=== PATIENT | female | born 1955 | race Caucasian/White ===

== ENCOUNTER → 2023-12-03 10:17 | Outpatient (REF) | payer MEDICARE, OTHER, SELFPAY | LOC: DHCBS HW 10:17 | PROVIDERS: ATTENDING PHYSICIAN Internal Medicine Cardiovascular Disease; FAMILY PHYSICIAN Internal Medicine | DX: R00.2 Palpitations (principal); I10 Essential (primary) hypertension | CPT/HCPCS: 93306 ==

== ENCOUNTER → 2023-12-18 14:16 | Outpatient (REF) | payer MEDICARE, OTHER, SELFPAY ==
[2023-12-18 15:43] LABS: % Basophils 0.7 % (0-2); % Immature Granulocytes 0.4 % (0-0.5); % Lymphocytes 18.2 % (20.5-51.1); % Monocytes 9.4 % (1.7-9.3); % Neutrophils 70.3 % (42.2-75.2); Absolute Basophils 0.1 10^3/uL (0-0.2); Absolute Eosinophils 0.1 10^3/uL (0-0.7); Absolute Lymphocytes 1.3 10^3/uL (1.2-3.4); Absolute Monocytes 0.7 10^3/uL (0.1-0.6); Absolute Neutrophils 4.9 10^3/uL (1.4-6.5); Hematocrit 35.4 % (37.0-47.0); Hemoglobin 12.3 g/dL (12.0-16.0); Mean Corp Hgb Conc. 34.7 g/dL (33.0-37.0); Mean Corpuscular Hgb 30.3 pg (27.0-31.0); Mean Corpuscular Volume 87.2 fL (81.0-99.0); Mean Platelet Volume 10.8 fL (7.4-10.4); Nucleated Red Blood Cells % 0 %; Platelet Count 236 10^3/uL (130-400); Red Blood Cell Count 4.06 10^6/uL (4.20-5.40); Red Cell Dist. Width 12.7 % (11.5-14.5); White Blood Cell Count 6.9 10^3/uL (4.8-10.8)
[2023-12-18 15:56] LABS: Iron 52 ug/dl (37-170)
[2023-12-18 16:05] LABS: Percent Saturation 12 % (20-50); Total Iron Binding Capacity 407 ug/dl (265-497)
[2023-12-18 16:33] LABS: Ferritin 12.2 ng/ml (11.1-264.0)
== END ==
LOC: REG 14:16
PROVIDERS: ATTENDING PHYSICIAN Internal Medicine Hematology & Oncology; FAMILY PHYSICIAN Internal Medicine; REFERRING PHYSICIAN Internal Medicine
DX: D50.8 Other iron deficiency anemias (principal)
CPT/HCPCS: 36415; 82728; 83540; 83550; 85025

== ENCOUNTER → 2023-12-29 15:45 | Outpatient (REF) | payer MEDICARE, OTHER, SELFPAY ==
[2023-12-29 12:28] LABS: % Basophils 0.9 % (0-2); % Immature Granulocytes 0.2 % (0-0.5); % Lymphocytes 19.7 % (20.5-51.1); % Monocytes 10.5 % (1.7-9.3); % Neutrophils 67.7 % (42.2-75.2); Absolute Basophils 0.1 10^3/uL (0-0.2); Absolute Eosinophils 0.1 10^3/uL (0-0.7); Absolute Lymphocytes 1.2 10^3/uL (1.2-3.4); Absolute Monocytes 0.6 10^3/uL (0.1-0.6); Hematocrit 37.3 % (37.0-47.0); Hemoglobin 12.5 g/dL (12.0-16.0); Mean Corp Hgb Conc. 33.5 g/dL (33.0-37.0); Mean Corpuscular Hgb 29.8 pg (27.0-31.0); Nucleated Red Blood Cells % 0 %; Platelet Count 306 10^3/uL (130-400); Red Blood Cell Count 4.19 10^6/uL (4.20-5.40); Red Cell Dist. Width 12.5 % (11.5-14.5); White Blood Cell Count 5.8 10^3/uL (4.8-10.8)
== END ==
LOC: OIDL 15:45
PROVIDERS: ATTENDING PHYSICIAN Nurse Practitioner Primary Care
DX: D50.8 Other iron deficiency anemias (principal)
CPT/HCPCS: 85025

== ENCOUNTER → 2024-03-08 10:58 | Outpatient (REF) | payer MEDICARE, OTHER, SELFPAY ==
[2024-03-08 12:20] LABS: % Basophils 1.2 % (0-2); % Eosinophils 1.4 % (0-6); % Immature Granulocytes 0.2 % (0-0.5); % Lymphocytes 27.2 % (20.5-51.1); % Monocytes 9.2 % (1.7-9.3); % Neutrophils 60.8 % (42.2-75.2); Absolute Basophils 0.1 10^3/uL (0-0.2); Absolute Eosinophils 0.1 10^3/uL (0-0.7); Absolute Lymphocytes 1.1 10^3/uL (1.2-3.4); Absolute Monocytes 0.4 10^3/uL (0.1-0.6); Absolute Neutrophils 2.5 10^3/uL (1.4-6.5); Hemoglobin 13.7 g/dL (12.0-16.0); Mean Corp Hgb Conc. 34.3 g/dL (33.0-37.0); Mean Corpuscular Hgb 30.1 pg (27.0-31.0); Mean Corpuscular Volume 87.9 fL (81.0-99.0); Mean Platelet Volume 9.6 fL (7.4-10.4); Nucleated Red Blood Cells % 0 %; Platelet Count 277 10^3/uL (130-400); Red Blood Cell Count 4.55 10^6/uL (4.20-5.40); Red Cell Dist. Width 14.5 % (11.5-14.5); White Blood Cell Count 4.2 10^3/uL (4.8-10.8)
[2024-03-08 12:32] LABS: Urine Albumin Negative (Neg - Trace); Urine Bilirubin Negative (Negative); Urine Character Clear (Clear); Urine Color Yellow; Urine Glucose Negative (Negative); Urine Ketone Negative (Negative); Urine Leukocyte Negative (Negative); Urine Nitrite Negative (Negative); Urine Occult Blood Negative (Negative); Urine Specific Gravity 1.015 (<1.030); Urine Urobilinogen Negative (Neg - 1+)
[2024-03-08 12:47] LABS: ALT (SGPT) 25 U/L (0-35); AST (SGOT) 31 U/L (14-36); Albumin 3.9 g/dl (3.5-5.0); Alkaline Phosphatase 58 U/L (38-126); Blood Urea Nitrogen 27 mg/dl (7-17); Calcium 9.3 mg/dl (8.4-10.2); Carbon Dioxide 29 mmol/L (22-30); Chloride 101 mmol/L (98-107); Creatine Phosphokinase 75 U/L (30-135); Glucose 95 mg/dl (70-99); HDL Cholesterol 72 mg/dl; LDL Cholesterol, Calculated 109 mg/dl; Magnesium 2.2 mg/dl (1.6-2.3); Potassium 4.3 mmol/L (3.5-5.1); Sodium 137 mmol/L (135-145); Total Bilirubin 0.4 mg/dl (0.2-1.3); Total Cholesterol 194 mg/dl (50-199); Total Protein 6.5 g/dl (6.3-8.2); Triglyceride 68 mg/dl (10-149); Very Low Density Lipoprotein 13 mg/dl (0-30); eGFR > 60.00
[2024-03-08 12:49] LABS: Glycohemoglobin (HgbA1c) 5.9 % (4.0-5.6)
[2024-03-08 13:48] LABS: Free T4 1.12 ng/dl (0.78-2.19); Vitamin D, 25-OH*** 37.3 ng/mL (30-80)
[2024-03-08 14:01] LABS: TSH 1.83 uIU/ml (0.47-4.68)
[2024-03-08 14:37] LABS: Folate 3.6 ng/ml (2.76-20); Vitamin B12 963 pg/ml (239-931)
== END ==
LOC: REG 10:58
PROVIDERS: ATTENDING PHYSICIAN Internal Medicine
DX: I10 Essential (primary) hypertension (principal); E78.5 Hyperlipidemia, unspecified; R20.2 Paresthesia of skin; E55.9 Vitamin D deficiency, unspecified; R35.0 Frequency of micturition; R20.0 Anesthesia of skin
CPT/HCPCS: 36415; 80053; 80061; 81003; 82306; 82550; 82607; 82746; 83036; 83735; 84439; 84443; 85025

== ENCOUNTER → 2024-05-20 06:37 | Day surgery (SDC) | payer MEDICARE, OTHER, SELFPAY | LOC: GI 06:37 | PROVIDERS: ATTENDING PHYSICIAN Internal Medicine Gastroenterology | DX: Z12.11 Encounter for screening for malignant neoplasm of colon (principal); K64.8 Other hemorrhoids; K57.30 Diverticulosis of large intestine without perforation or abscess without bleeding; K63.5 Polyp of colon; R10.13 Epigastric pain; Q39.9 Congenital malformation of esophagus, unspecified; K25.9 Gastric ulcer, unspecified as acute or chronic, without hemorrhage or perforation; K44.9 Diaphragmatic hernia without obstruction or gangrene; K31.89 Other diseases of stomach and duodenum | CPT/HCPCS: 45380; 43239; 88305; 88342 ==

== ENCOUNTER → 2024-06-28 13:02 | Outpatient (REF) | payer MEDICARE, OTHER, SELFPAY ==
[2024-06-28 13:30] LABS: % Eosinophils 2.7 % (0-6); % Immature Granulocytes 0.2 % (0-0.5); % Lymphocytes 20.6 % (20.5-51.1); % Monocytes 10.2 % (1.7-9.3); % Neutrophils 65.3 % (42.2-75.2); Absolute Basophils 0.1 10^3/uL (0-0.2); Absolute Eosinophils 0.2 10^3/uL (0-0.7); Absolute Lymphocytes 1.3 10^3/uL (1.2-3.4); Absolute Monocytes 0.6 10^3/uL (0.1-0.6); Absolute Neutrophils 4.1 10^3/uL (1.4-6.5); Hematocrit 40.9 % (37.0-47.0); Hemoglobin 13.8 g/dL (12.0-16.0); Mean Corp Hgb Conc. 33.7 g/dL (33.0-37.0); Mean Corpuscular Hgb 27.9 pg (27.0-31.0); Mean Corpuscular Volume 82.8 fL (81.0-99.0); Mean Platelet Volume 9.2 fL (7.4-10.4); Nucleated Red Blood Cells % 0 %; Platelet Count 265 10^3/uL (130-400); Red Blood Cell Count 4.94 10^6/uL (4.20-5.40); Red Cell Dist. Width 12.6 % (11.5-14.5); White Blood Cell Count 6.3 10^3/uL (4.8-10.8)
[2024-06-28 14:01] LABS: Iron 61 ug/dl (37-170)
[2024-06-28 14:10] LABS: Percent Saturation 15 % (20-50); Total Iron Binding Capacity 400 ug/dl (265-497)
[2024-06-28 14:35] LABS: Ferritin 15.8 ng/ml (11.1-264.0)
== END ==
LOC: REG 13:02
PROVIDERS: ATTENDING PHYSICIAN Internal Medicine Hematology & Oncology; FAMILY PHYSICIAN Internal Medicine; REFERRING PHYSICIAN Internal Medicine
DX: D50.8 Other iron deficiency anemias (principal)
CPT/HCPCS: 36415; 82728; 83540; 83550; 85025

== ENCOUNTER → 2024-07-05 15:51 | Outpatient (REF) | payer MEDICARE, OTHER, SELFPAY ==
[2024-07-05 11:33] LABS: % Basophils 0.9 % (0-2); % Eosinophils 2.6 % (0-6); % Immature Granulocytes 0.4 % (0-0.5); % Lymphocytes 22.8 % (20.5-51.1); % Monocytes 11.6 % (1.7-9.3); % Neutrophils 61.7 % (42.2-75.2); Absolute Eosinophils 0.1 10^3/uL (0-0.7); Absolute Lymphocytes 1.1 10^3/uL (1.2-3.4); Absolute Monocytes 0.5 10^3/uL (0.1-0.6); Absolute Neutrophils 2.9 10^3/uL (1.4-6.5); Hematocrit 37.9 % (37.0-47.0); Mean Corp Hgb Conc. 34.3 g/dL (33.0-37.0); Mean Corpuscular Volume 81.5 fL (81.0-99.0); Mean Platelet Volume 9.3 fL (7.4-10.4); Nucleated Red Blood Cells % 0 %; Platelet Count 267 10^3/uL (130-400); Red Blood Cell Count 4.65 10^6/uL (4.20-5.40); Red Cell Dist. Width 12.8 % (11.5-14.5); White Blood Cell Count 4.7 10^3/uL (4.8-10.8)
== END ==
LOC: OIDL 15:51
PROVIDERS: ATTENDING PHYSICIAN Nurse Practitioner Primary Care
DX: D50.8 Other iron deficiency anemias (principal)
CPT/HCPCS: 85025

== ENCOUNTER → 2024-07-22 10:46 | Outpatient (REF) | payer MEDICARE, OTHER, SELFPAY ==
[2024-07-22 12:50] LABS: ALT (SGPT) 33 U/L (0-35); AST (SGOT) 33 U/L (14-36); Albumin 4.8 g/dl (3.5-5.0); Alkaline Phosphatase 68 U/L (38-126); Blood Urea Nitrogen 18 mg/dl (7-17); Calcium 10.1 mg/dl (8.4-10.2); Carbon Dioxide 28 mmol/L (22-30); Chloride 99 mmol/L (98-107); Creatine Phosphokinase 64 U/L (30-135); Glucose 97 mg/dl (70-99); Magnesium 2.2 mg/dl (1.6-2.3); Potassium 3.9 mmol/L (3.5-5.1); Sodium 139 mmol/L (135-145); Total Bilirubin 0.6 mg/dl (0.2-1.3); Total Protein 7.3 g/dl (6.3-8.2); eGFR > 60.00
[2024-07-22 12:58] LABS: Vitamin D, 25-OH*** 34.9 ng/mL (30-80)
[2024-07-22 13:31] LABS: Vitamin B12 503 pg/ml (239-931)
== END ==
LOC: REG 10:46
PROVIDERS: ATTENDING PHYSICIAN Internal Medicine; REFERRING PHYSICIAN Internal Medicine Hematology & Oncology
DX: M79.10 Myalgia, unspecified site (principal); M79.89 Other specified soft tissue disorders; R79.0 Abnormal level of blood mineral
CPT/HCPCS: 36415; 80053; 82306; 82550; 82607; 83735

== ENCOUNTER → 2024-08-09 11:59 | Outpatient (REF) | payer MEDICARE, OTHER, SELFPAY ==
[2024-08-09 16:19] LABS: % Basophils 0.8 % (0-2); % Eosinophils 1.5 % (0-6); % Immature Granulocytes 0.2 % (0-0.5); % Lymphocytes 18.3 % (20.5-51.1); % Monocytes 11.9 % (1.7-9.3); % Neutrophils 67.3 % (42.2-75.2); Absolute Eosinophils 0.1 10^3/uL (0-0.7); Absolute Monocytes 0.6 10^3/uL (0.1-0.6); Absolute Neutrophils 3.6 10^3/uL (1.4-6.5); Hematocrit 44.1 % (37.0-47.0); Mean Corpuscular Hgb 29.7 pg (27.0-31.0); Mean Corpuscular Volume 87.3 fL (81.0-99.0); Nucleated Red Blood Cells % 0 %; Platelet Count 267 10^3/uL (130-400); Red Blood Cell Count 5.05 10^6/uL (4.20-5.40); Red Cell Dist. Width 15.7 % (11.5-14.5); White Blood Cell Count 5.3 10^3/uL (4.8-10.8)
[2024-08-09 17:31] LABS: Iron 55 ug/dl (37-170)
[2024-08-09 17:40] LABS: Percent Saturation 19 % (20-50); Total Iron Binding Capacity 276 ug/dl (265-497)
== END ==
LOC: HWLAB 11:59
PROVIDERS: ATTENDING PHYSICIAN Internal Medicine Hematology & Oncology; FAMILY PHYSICIAN Internal Medicine
DX: D50.8 Other iron deficiency anemias (principal)
CPT/HCPCS: 36415; 82728; 83540; 83550; 85025

== ENCOUNTER → 2024-10-18 11:59 | Outpatient (REF) | payer MEDICARE, OTHER, SELFPAY ==
[2024-10-18 13:05] LABS: % Basophils 0.8 % (0-2); % Eosinophils 0.8 % (0-6); % Immature Granulocytes 0.2 % (0-0.5); % Lymphocytes 25.9 % (20.5-51.1); % Neutrophils 62.3 % (42.2-75.2); Absolute Lymphocytes 1.3 10^3/uL (1.2-3.4); Absolute Monocytes 0.5 10^3/uL (0.1-0.6); Absolute Neutrophils 3.1 10^3/uL (1.4-6.5); Hematocrit 45.3 % (37.0-47.0); Hemoglobin 15.6 g/dL (12.0-16.0); Mean Corp Hgb Conc. 34.4 g/dL (33.0-37.0); Mean Corpuscular Hgb 30.8 pg (27.0-31.0); Mean Corpuscular Volume 89.5 fL (81.0-99.0); Mean Platelet Volume 9.2 fL (7.4-10.4); Nucleated Red Blood Cells % 0 %; Platelet Count 231 10^3/uL (130-400); Red Blood Cell Count 5.06 10^6/uL (4.20-5.40); Red Cell Dist. Width 13.3 % (11.5-14.5)
[2024-10-18 13:32] LABS: ALT (SGPT) 26 U/L (0-35); AST (SGOT) 25 U/L (14-36); Albumin 4.4 g/dl (3.5-5.0); Alkaline Phosphatase 64 U/L (38-126); Blood Urea Nitrogen 15 mg/dl (7-17); Calcium 9.7 mg/dl (8.4-10.2); Carbon Dioxide 32 mmol/L (22-30); Chloride 98 mmol/L (98-107); Creatine Phosphokinase 52 U/L (30-135); Glucose 106 mg/dl (70-99); HDL Cholesterol 82 mg/dl; Iron 134 ug/dl (37-170); LDL Cholesterol, Calculated 109 mg/dl; Potassium 4.3 mmol/L (3.5-5.1); Sodium 136 mmol/L (135-145); Total Bilirubin 0.7 mg/dl (0.2-1.3); Total Cholesterol 206 mg/dl (50-199); Total Protein 6.9 g/dl (6.3-8.2); Triglyceride 76 mg/dl (10-149); Very Low Density Lipoprotein 15 mg/dl (0-30); eGFR > 60.00
[2024-10-18 13:40] LABS: Percent Saturation 46 % (20-50); Total Iron Binding Capacity 289 ug/dl (265-497)
[2024-10-18 13:58] LABS: Vitamin D, 25-OH*** 27.6 ng/mL (30-80)
[2024-10-18 14:12] LABS: TSH 1.76 uIU/ml (0.47-4.68)
[2024-10-18 14:31] LABS: Glycohemoglobin (HgbA1c) 5.8 % (4.0-5.6)
== END ==
LOC: REG 11:59
PROVIDERS: ATTENDING PHYSICIAN Internal Medicine
DX: E78.5 Hyperlipidemia, unspecified (principal); D50.9 Iron deficiency anemia, unspecified; M85.88 Other specified disorders of bone density and structure, other site; R73.9 Hyperglycemia, unspecified; E55.9 Vitamin D deficiency, unspecified
CPT/HCPCS: 36415; 80053; 80061; 82306; 82550; 82728; 83036; 83540; 83550; 84443; 85025

== ENCOUNTER → 2024-10-29 11:40 | Outpatient (REF) | payer MEDICARE, OTHER, SELFPAY | LOC: RAD 11:40 | PROVIDERS: ATTENDING PHYSICIAN Internal Medicine | DX: R10.11 Right upper quadrant pain (principal); R10.12 Left upper quadrant pain | CPT/HCPCS: 74177; Q9967 ==

== ENCOUNTER → 2024-11-27 11:14 | Outpatient (REF) | payer MEDICARE, OTHER, SELFPAY ==
[2024-11-27 12:19] LABS: % Basophils 1.1 % (0-2); % Immature Granulocytes 0.2 % (0-0.5); % Lymphocytes 25.5 % (20.5-51.1); % Monocytes 11.1 % (1.7-9.3); % Neutrophils 60.1 % (42.2-75.2); Absolute Basophils 0.1 10^3/uL (0-0.2); Absolute Eosinophils 0.1 10^3/uL (0-0.7); Absolute Lymphocytes 1.2 10^3/uL (1.2-3.4); Absolute Monocytes 0.5 10^3/uL (0.1-0.6); Absolute Neutrophils 2.8 10^3/uL (1.4-6.5); Hematocrit 43.8 % (37.0-47.0); Hemoglobin 15.3 g/dL (12.0-16.0); Mean Corp Hgb Conc. 34.9 g/dL (33.0-37.0); Mean Corpuscular Hgb 31.3 pg (27.0-31.0); Mean Corpuscular Volume 89.6 fL (81.0-99.0); Mean Platelet Volume 9.4 fL (7.4-10.4); Nucleated Red Blood Cells % 0 %; Platelet Count 260 10^3/uL (130-400); Red Blood Cell Count 4.89 10^6/uL (4.20-5.40); White Blood Cell Count 4.6 10^3/uL (4.8-10.8)
[2024-11-27 12:31] LABS: Iron 116 ug/dl (37-170)
[2024-11-27 12:40] LABS: Percent Saturation 42 % (20-50); Total Iron Binding Capacity 274 ug/dl (265-497)
== END ==
LOC: REG 11:14
PROVIDERS: ATTENDING PHYSICIAN Internal Medicine Hematology & Oncology; FAMILY PHYSICIAN Internal Medicine
DX: D50.8 Other iron deficiency anemias (principal)
CPT/HCPCS: 36415; 82728; 83540; 83550; 85025

== ENCOUNTER 2025-02-10 09:50 | Emergency (ER) | payer MEDICARE, OTHER, SELFPAY ==
[2025-02-10 10:04] VITALS: BP 145/113
--- NOTE | 2025-02-10 10:43 | ED.CVA ---
History of Present Illness
General
Chief Complaint: CVA/TIA Symptoms
Source: patient and spouse
Exam Limitations: none
Time Seen by Provider: 02/10/25 10:25
Onset of Stroke Symptoms
Onset of symptoms known: Yes
Date of onset of symptoms: 01/27/25
History of Present Illness
History of Present Illness:
69-year-old female had Botox injections around both eyes about 3 weeks ago. 2 weeks ago she noted a slight left eyelid droop. Seen by ophthalmology who felt it was secondary to her Botox. She is also had intermittent twitching at the left chin.
None currently. Generally just does not feel well the last 2 or 3 days. Cannot be more specific. Denies headache new neurologic symptoms double vision gait issues focal weakness fever chills cough abdominal pain urinary symptoms or any other
focal symptoms.
Past History
Past History
ED Past Medical History: HTN and Hypercholesterolemia
ED Past Surgical History: Gynecological, Orthopedic and Other (Pituitary tumor)
Social History
Tobacco: Non-smoker
Alcohol: None
Personal:
Review of Systems
Review of Systems
All Other Systems: Not applicable
Constitutional: Reports fatigue; Denies fever or chills
Respiratory: Reports no symptoms
Cardiac: Reports no symptoms
Phy Exam
Physical Exam
Physical Exam:
GENERAL: Alert and oriented in no apparent distress
EYE: Orbits normal. Extraocular muscles intact
NECK: Supple, no carotid bruit
ENT: Pharynx without erythema
CARDIAC: Regular rate and rhythm without any obvious murmurs.
LUNGS: Clear breath sounds,normal
ABDOMEN: Soft, without focal tenderness or distention
NEUROLOGICAL: Alert and oriented , cranial nerves II through XII intact. Speech normal. [id number] normal. No drift.
SKIN: Warm and dry, no rash or lesion, no discoloration, skin intact.
MUSCULOSKELETAL: No edema,no deformity.Good color
PSYCH: Normal and appropriate interaction.
Course
Orders/Labs/Results
Orders:
Orders
02/10/25 10:39
Electrocardiogram (*1) Stat
Reason for Study: Other
Other Reason for Exam: r/o kidney stone
EKG- Treatment ONCE
IV Insert/Care/Rem.- Treatment PRN
0.9% Sodium Chloride 500 ml [Nss] 500 ml IV BOLUS
Pulse Ox/cont/shift [RESP] Stat
Quantity: 1
02/10/25 10:40
CT Head W/o Iv Contrast Urgent
Comment:
Reason For Exam: Left eye droop/twitching
02/10/25 11:00
Basic Metabolic Panel Urgent
Complete Blood Count/With Diff Urgent
TSH Reflex To Free T4 Urgent
Troponin I Urgent
02/10/25 11:49
Urinalysis Reflex To Culture Urgent
Date Specimen was Collected: 02/10/25
Time Specimen was Collected: 11:48
Abnormal Lab Results
02/10/25
11:00
MCH 31.4 H pg
(27.0-31.0)
Absolute Lymphs (auto) 1.1 L 10^3/uL
(1.2-3.4)
Monocytes % 10.7 H %
(1.7-9.3)
BUN 19 H mg/dl
(7-17)
Glucose 120 H mg/dl
(70-99)
02/10/25 11:00
02/10/25 11:00
Vital Signs
Initial and Last Documented VS:
Initial Vital Signs
Temp Pulse Resp BP Pulse Ox
98.3 F 88 20 145/113 97
02/10/25 10:04 02/10/25 10:04 02/10/25 10:04 02/10/25 10:04 02/10/25 10:04
Last Documented Vital Signs
Temp Pulse Resp BP Pulse Ox
98.3 F 71 16 140/74 98
02/10/25 10:04 02/10/25 12:44 02/10/25 12:44 02/10/25 12:44 02/10/25 12:44
MDM/Problems Addressed
Differential Diagnosis Includes:
Patient not describing acute neurologic issues. I am confident her eyelid droop that she describes although I cannot visualize and the intermittent twitching is related to the Botox. We will get a CT scan of the head however as a screen for
completeness. Her other symptoms are very vague in nature. Not describing to infectious symptoms. Very low suspicion for cardiac. However we will check for anemia cardiac issues electrolyte issues urine.
*Radiology
Radiology exam reviewed: radiology read reviewed (No acute findings on CT. Stable suprasellar lesion)
*Pulse Oximetry
Patient hypoxic: no
*Critical Care Note
Total Time (30-74mins, 75-104mins- exclusive of procedures): Not Applicable
Data Reviewed
Review of Other/Old Records Reveals: Labs, Records and Testing
Update Note
Update Note:
Patient has remained medically stable and has had stable symptoms for weeks. Describing a left eyelid droop and intermittent twitching of the left side of the chin. She is neurologically stable and nontoxic. Workup was unremarkable. She has a
known suprasellar macroadenoma. Copy of CT report given to patient and . 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 This has remained stable over the years. I do not think this would explain her left eyelid
symptoms and left cheek twitching at times. No severe headaches or other neurologic symptoms. No neck symptoms. No carotid bruit. No myosis. Stable for discharge to follow-up
ED Attending Note
-
Portions of this chart may have been created with voice recognition software.� Occasional wrong word or��sound alike� substitutions may have occurred due to the inherent limitations of voice recognition software.
Discharge Plan
Departure
Patient Disposition: Home (Routine Discharge)
Date of Disposition: 02/10/25
Time of Disposition: 12:35
Patient with high blood pressure during this ER visit?: Yes
Discharge Problem:
Left eye ptosis, Weakness
Instructions: Weakness - ED discharge instructions, BLOOD PRESSURE
Prescriptions:
No Action
losartan 50 MG tablet
50 mg PO HS
cyanocobalamin (vitamin B-12) 1,000 MCG tablet
1,000 mcg PO HS
cholecalciferol (vitamin D3) [Vitamin D3] 1,000 UNIT capsule
1,000 units PO HS
rosuvastatin 5 MG tablet
5 mg PO QPM
oxycodone 5 MG tablet
5 mg PO SDS-Q4HPRN PRN (Reason: MILD PAIN) 0RF
celecoxib [Celebrex] 100 MG capsule
200 mg PO DAILY Qty: 30 0RF
aspirin 325 MG tablet,delayed release (DR/EC)
325 mg PO DAILY Qty: 30 0RF
Rx Instructions:
once daily 4 weeks to prevent blood clots
sennosides-docusate sodium [Senna-S] 1 EACH tablet
1 ea PO BID Qty: 60 0RF
Rx Instructions:
prevent constipation
docusate sodium [Colace] 100 MG capsule
100 mg PO BID Qty: 60 0RF
Rx Instructions:
prevent constipation
ondansetron [Zofran ODT] 8 MG tablet,disintegrating
4 mg PO TID PRN (Reason: nausea) Qty: 20 0RF
mupirocin 1 GRAM ointment
2 mbq intranasal BID Qty: 1 0RF
Patient Comments:
patient started this treatment on 07/11/19 in the am.
Rx Instructions:
two days after surgery
Referrals:
Didi Mccoy MD [Family Provider] - Follow up in 2-3 days
Activity Restrictions/Additional Instructions:
Follow-up closely with your primary physician.
Also follow-up with your neurologist
Return with any worsening symptoms, new neurologic symptoms, visual issues double vision neck pain etc.
Interventions
Interventions:
*Risk Screen - Suicide Last Done: 02/10/25 10:04
*General Assessment Last Done: 02/10/25 10:04
*Neglect/Abuse Screening Last Done: 02/10/25 10:04
*ED- Fall Risk Assessment Last Done: 02/10/25 12:44
*ED COVID-19 Vaccine History Last Done: 02/10/25 12:44
ED- Pulmonary Assessment Last Done: 02/10/25 10:35
ED- Neurological Assessment Last Done: 02/10/25 10:35
ED- Cardiac Assessment Last Done: 02/10/25 10:35
ED Swallowing Screen Last Done: 02/10/25 10:35
Discharge Date and Time
Print Language: PASHTO
[2025-02-10 11:08] LABS: % Basophils 0.8 % (0-2); % Immature Granulocytes 0.2 % (0-0.5); % Lymphocytes 23.1 % (20.5-51.1); % Monocytes 10.7 % (1.7-9.3); % Neutrophils 64.2 % (42.2-75.2); Absolute Eosinophils 0.1 10^3/uL (0-0.7); Absolute Lymphocytes 1.1 10^3/uL (1.2-3.4); Absolute Monocytes 0.5 10^3/uL (0.1-0.6); Absolute Neutrophils 3.1 10^3/uL (1.4-6.5); Hematocrit 44.2 % (37.0-47.0); Hemoglobin 15.4 g/dL (12.0-16.0); Mean Corp Hgb Conc. 34.8 g/dL (33.0-37.0); Mean Corpuscular Hgb 31.4 pg (27.0-31.0); Mean Platelet Volume 9.1 fL (7.4-10.4); Nucleated Red Blood Cells % 0 %; Platelet Count 215 10^3/uL (130-400); Red Blood Cell Count 4.91 10^6/uL (4.20-5.40); White Blood Cell Count 4.8 10^3/uL (4.8-10.8)
[2025-02-10 11:35] LABS: Blood Urea Nitrogen 19 mg/dl (7-17); Calcium 9.6 mg/dl (8.4-10.2); Carbon Dioxide 30 mmol/L (22-30); Chloride 100 mmol/L (98-107); Glucose 120 mg/dl (70-99); Potassium 3.5 mmol/L (3.5-5.1); Sodium 139 mmol/L (135-145); eGFR > 60.00
[2025-02-10] MEDS: NSS 500 IV (11:53)
[2025-02-10 11:54] LABS: Troponin I < 0.012 ng/ml
[2025-02-10 12:04] LABS: Urine Albumin Negative (Neg - Trace); Urine Bilirubin Negative (Negative); Urine Character Clear (Clear); Urine Color Yellow; Urine Glucose Negative (Negative); Urine Ketone Negative (Negative); Urine Leukocyte Negative (Negative); Urine Nitrite Negative (Negative); Urine Occult Blood Negative (Negative); Urine Specific Gravity 1.005 (<1.030); Urine Urobilinogen Negative (Neg - 1+)
[2025-02-10 12:26] LABS: TSH Reflex To Free T4 1.28 uIU/ml (0.47-4.68)
[2025-02-10 12:44] VITALS: BP 140/74
== END 2025-02-10 13:02 | disposition home or self-care (01) ==
LOC: EMR 09:50
PROVIDERS: EMERGENCY PHYSICIAN Emergency Medicine; FAMILY PHYSICIAN Internal Medicine; REFERRING PHYSICIAN Internal Medicine
DX: H02.402 Unspecified ptosis of left eyelid (principal); R53.1 Weakness; I10 Essential (primary) hypertension; E78.00 Pure hypercholesterolemia, unspecified
CPT/HCPCS: 99284; 96360; 96361; 70450; 80048; 81003; 84443; 84484; 85025; 93005

== ENCOUNTER → 2025-03-21 10:08 | Outpatient (REF) | payer MEDICARE, OTHER, SELFPAY ==
[2025-03-21 11:13] LABS: Hematocrit 44.6 % (37.0-47.0); Hemoglobin 15.4 g/dL (12.0-16.0); Mean Corp Hgb Conc. 34.5 g/dL (33.0-37.0); Mean Corpuscular Hgb 31.4 pg (27.0-31.0); Mean Corpuscular Volume 90.8 fL (81.0-99.0); Mean Platelet Volume 9.4 fL (7.4-10.4); Platelet Count 241 10^3/uL (130-400); Red Blood Cell Count 4.91 10^6/uL (4.20-5.40); Red Cell Dist. Width 12.3 % (11.5-14.5)
[2025-03-21 12:32] LABS: Blood Urea Nitrogen 13 mg/dl (7-17); Calcium 9.5 mg/dl (8.4-10.2); Carbon Dioxide 27 mmol/L (22-30); Chloride 105 mmol/L (98-107); Glucose 119 mg/dl (70-99); Potassium 4.1 mmol/L (3.5-5.1); Sodium 140 mmol/L (135-145); eGFR > 60.00
== END ==
LOC: SDSPAT 10:08
PROVIDERS: ATTENDING PHYSICIAN Surgery; FAMILY PHYSICIAN Internal Medicine; OTHER PHYSICIAN Internal Medicine
DX: Z01.818 Encounter for other preprocedural examination (principal)
CPT/HCPCS: 36415; 80048; 85027; 93005

== ENCOUNTER 2025-04-13 06:19 | Day surgery (SDC) | payer MEDICARE, OTHER, SELFPAY ==
[2025-03-21 13:23] VITALS: BMI 26.2
[2025-04-13] VITALS (12 sets, daily range): BP systolic 107–143; BP diastolic 49–88; BMI 26.2
[2025-04-13] MEDS: TYLENOL 1000 MG PO (10:23)
[2025-04-13] MEDS: NORMOSOL-R/PLASMALYTE-A 1000 IV ×2 (10:35→18:04)
--- NOTE | 2025-04-13 15:17 | W.IMMPOSTOP ---
Surgical Immed Post Op Note
-
Primary Surgeon: Moreno
Assisting Surgeon: JUSTIN Carrasco
Pre-op Diagnosis: Paraesophageal hernia
Post-op Diagnosis: Paraesophageal hernia
Procedure Performed: Laparoscopic paraesophageal hernia repair with Toupet fundoplication and intra-operative EGD
Anesthesia Type: General
Specimen / Cultures: None
Estimated Blood Loss: 7 cc
Complications: None
Operative Findings:
1. Large type III hernia containing 100% of stomach
2. > 3 cm esophageal mobilization
3. Posterior crural closure with 0 silk x3
4. Toupet fundoplication over 56 Fr Bougie
5. Bl vagi preserved, LEFT chest pleural violation (patient stable, chest evacuated with RRC at end of case)
6. EGD with no significant trauma or strictures, appropriately oriented wrap
[2025-04-13] MEDS: ZOFRAN 4 MG IV ×2 (15:54→18:31)
[2025-04-13] MEDS: OFIRMEV 100 IV ×2 (15:55→21:42)
[2025-04-13] MEDS: DILAUDID 0.5 MG IV (18:12)
[2025-04-14 03:02] VITALS: BP 120/59
[2025-04-14] MEDS: OFIRMEV 100 IV ×3 (03:52→15:45)
[2025-04-14] MEDS: NORMOSOL-R/PLASMALYTE-A 1000 IV (05:35)
[2025-04-14 06:41] LABS: Hematocrit 36.4 % (37.0-47.0); Hemoglobin 12.7 g/dL (12.0-16.0); Mean Corp Hgb Conc. 34.9 g/dL (33.0-37.0); Mean Corpuscular Hgb 31.8 pg (27.0-31.0); Mean Platelet Volume 9.7 fL (7.4-10.4); Platelet Count 202 10^3/uL (130-400); Red Cell Dist. Width 12.8 % (11.5-14.5); White Blood Cell Count 10.7 10^3/uL (4.8-10.8)
[2025-04-14 07:12] LABS: Blood Urea Nitrogen 15 mg/dl (7-17); Calcium 8.3 mg/dl (8.4-10.2); Carbon Dioxide 28 mmol/L (22-30); Chloride 104 mmol/L (98-107); Estimated Creatinine Clearance 67 ml/min; Glucose 113 mg/dl (70-99); Potassium 4.1 mmol/L (3.5-5.1); Sodium 135 mmol/L (135-145); eGFR > 60.00
--- NOTE | 2025-04-14 07:19 | W.PN.GS2 ---
Today's Communication / Plan
-
-- Clears ADAT to fulls then soft foods
-- Maintain IVF until PO intake improved
-- Pain control: Tylenol, Toradol, Oxycodone
-- Home meds
-- DC pending dietary tolerance throughout the day
Assessment / Plan
-
Patient is a 69 yo F POD#1 s/p laparoscopic PEH repair with fundoplication and EGD
AVSS
Labs unremarkable
Recovering well. No post-op concerns.
-- Clears ADAT to fulls then soft foods
-- Maintain IVF until PO intake improved
-- Pain control: Tylenol, Toradol, Oxycodone
-- Home meds
-- DVT: Lovenox
-- GI: None needed
-- DC pending dietary tolerance throughout the day
Subjective Data
-
Date of Service: April 14, 2025
Reports from LEFT chest and back soreness, overall well controlled. No nausea or emesis. No reflux. Denies SOB. No fevers.
Objective Data
-
Intake and Output
04/13/25 04/14/25 04/15/25
06:59 06:59 06:59
Intake Total 1400 / 1400
Balance 1400 / 1400
Intake:
IV fluids (Total) 1200 / 1200
IV piggybacks 200 / 200
Other:
Number of approximated SMALL 1
amounts of urine
Number of approximated MODERATE 2
amounts of urine
Vital Signs
Temp Pulse Resp BP Pulse Ox
98.6 F 79 18 120/59 95
04/14/25 03:02 04/14/25 03:02 04/14/25 03:02 04/14/25 03:02 04/14/25 03:02
Lab Results
04/14/25 05:20
04/14/25 05:20
Calcium 8.3 mg/dl (8.4-10.2) L 04/14/25 05:20
Physical Exam
-
Gen: NAD
Abd: soft, NT/ND, non-peritoneal, incisions c/d/i - no erythema or drainage, mild ecchymosis at Varess site
Patient has a odonnell catheter: No
Patient has a central line: No
[2025-04-14 08:00] VITALS: BP 107/51
[2025-04-14] MEDS: TORADOL 15 MG IV ×2 (08:50→21:56)
--- NOTE | 2025-04-14 09:34 | CM ---
Reviewed the chart notes and spoke with the patient and her spouse at the bedside. The patient resides with her spouse in a two story home with one step to enter. The patient reports no DME in use, has had [facility] in past, but no SNF. The patient
confirmed her pharmacy of choice is [facility]. The patient's spouse will provide transportation home. CM continues to be available to patient/family and is monitoring medical plan for needs at discharge.
Plan: Discharge to home when medically stable. No additional needs anticipated.
[2025-04-14 11:10] VITALS: BP 109/62
[2025-04-14 15:03] VITALS: BP 120/52
[2025-04-14] MEDS: NORMOSOL-R/PLASMALYTE-A IV (17:40)
[2025-04-14] MEDS: LEXAPRO 10 MG PO (17:48)
[2025-04-14] MEDS: LOVENOX 40 MG SC (17:48)
[2025-04-14] MEDS: CRESTOR 5 MG PO (17:48)
[2025-04-14] MEDS: FLUSH (NSS) 2 FLUSH IV (21:59)
[2025-04-14 23:00] VITALS: BP 105/39
[2025-04-15] MEDS: NORMOSOL-R/PLASMALYTE-A IV (00:26)
[2025-04-15 03:24] VITALS: BP 110/58
[2025-04-15 07:20] VITALS: BP 137/66
--- NOTE | 2025-04-15 09:03 | W.PN.GS2 ---
Today's Communication / Plan
-
-- DC
Assessment / Plan
-
Patient is a 69 yo F POD#2 s/p laparoscopic PEH repair with fundoplication and EGD
AVSS
Recovering well. No post-op concerns. Dietary education provided.
-- Soft diet
-- DC IVF
-- Pain control: Tylenol, Toradol, Oxycodone
-- Home meds
-- DVT: Lovenox
-- GI: None needed
-- DC today
Subjective Data
-
Date of Service: April 15, 2025
Slight back and shoulder soreness, not overly bothersome. No nausea or emesis. Tolerated soft food diet. Small burps, slight bloating. Passing flatus. No fevers.
Objective Data
-
Intake and Output
04/14/25 04/15/25 04/16/25
06:59 06:59 06:59
Intake Total 1400 / 1400 100 / 100
Balance 1400 / 1400 100 / 100
Intake:
IV fluids (Total) 1200 / 1200
IV piggybacks 200 / 200 100 / 100
Other:
Number of approximated SMALL 1
amounts of urine
Number of approximated MODERATE 2 2
amounts of urine
Vital Signs
Temp Pulse Resp BP Pulse Ox
98.4 F 74 16 137/66 92
04/15/25 07:20 04/15/25 07:20 04/15/25 07:20 04/15/25 07:20 04/15/25 07:20
Lab Results
04/14/25 05:20
04/14/25 05:20
Calcium 8.3 mg/dl (8.4-10.2) L 04/14/25 05:20
Physical Exam
-
Gen: NAD
Abd: soft, mild tenderness, ND, non-peritoneal, incisions c/d/i - no erythema or drainage, mild ecchymosis
Patient has a central line: No
[2025-04-15] MEDS: TORADOL 15 MG IV (09:27)
--- NOTE | 2025-04-15 10:12 | CM ---
Patient seen at bedside on . Patient for discharge home with family. Patient with no concerns at this time. Plan for discharge today. CM will continue to follow for discharge planning needs.
Plan; home with no needs.
[2025-04-15] MEDS: TORADOL 10 MG PO (10:16)
--- NOTE | 2025-04-15 10:58 | PTCARENOTE ---
Received discharge orders from provider. Reviewed d/c instructions with patient, questions answered - Pt brought up needed antiemetic for home for possible nausea. Provider made aware - added to med list and d/c instructions. Transport called,
d/c'd to home.
== END 2025-04-15 11:01 | disposition home or self-care (01) ==
LOC: SDS 06:19
PROVIDERS: ATTENDING PHYSICIAN Surgery; FAMILY PHYSICIAN Internal Medicine
DX: K44.9 Diaphragmatic hernia without obstruction or gangrene (principal)
CPT/HCPCS: 43281; 80048; 85027; C1729

== ENCOUNTER 2025-06-24 12:31 | Emergency (ER) | payer MEDICARE, OTHER, SELFPAY ==
[2025-06-24 12:35] VITALS: BP 127/79
--- NOTE | 2025-06-24 12:47 | ED.GENMED ---
History of Present Illness
General
Chief Complaint: Fall
Source: patient
Exam Limitations: none
Time Seen by Provider: 06/24/25 12:45
Nursing documentation reviewed up to this point in time: agreed with
History of Present Illness
History of Present Illness:
69-year-old female with history as noted presents with her for evaluation of knee pain after a fall. Patient reports that yesterday she was walking down some stairs when she slipped and fell care home down. She says that her right knee was
flexed underneath her. She did not hit her head or sustain any other injuries but has been having pain and swelling of the right knee since. She says she was icing the last night. This morning called to schedule an appointment with orthopedist
but was told that there were no appointments within a satisfactory timeframe for her and so she came to the ER. She complains of pain mainly in the medial aspect of the right knee. Worse with movement particular with extreme flexion. She has been
able to weight-bear with minimal pain. She denies any other injuries or complaints including headache, neck pain, back pain, rib pain. Review of her medication shows no blood thinners. She does have history of left knee replacement but no
procedures on the right knee; previously seen by Dr. Blanton.
Past History
Past History
ED Past Medical History: HTN and Hypercholesterolemia
ED Past Surgical History: Gynecological, Orthopedic and Other (Pituitary tumor)
Social History
Tobacco: Non-smoker
Alcohol: None
Personal:
Review of Systems
Review of Systems
All Other Systems: ROS reviewed and negative except as documented in HPI and ROS
Constitutional: Denies fever
Musculoskeletal: Reports joint pain and joint swelling; Denies neck pain or back pain
Neurological: Denies headache
Phy Exam
Physical Exam
Physical Exam:
General: Awake, alert, oriented x3; no acute distress
Head: Normocephalic, atraumatic
Eyes: Conjunctiva normal
Throat: Airway intact, handling secretions
Neck: Trachea midline, no cervical spine tenderness
Lungs: Breathing comfortably no distress
Heart: Regular rate
Neuro: Cranial nerves grossly intact, speech fluid; motor and sensory intact in all extremities
Skin: No lacerations or abrasions noted
Extremities: Patient has mild swelling/effusion of the right knee with medial joint line tenderness; no lateral joint line tenderness, no pain with manipulation of the patella; negative anterior drawer sign, no laxity on varus or valgus stress; she
has full active range of motion of the, pain at extreme of flexion but minimal pain on full extension; she has no tenderness along the calf, ankle and no edema in the leg; she has a strong popliteal, DP and PT pulse in the right lower extremity;
rest of extremities appear atraumatic
Scores
Heart Failure Risk
Heart Failure Risk Score: Not Applicable
Heart Score for Chest Pain Patients
STEMI patient?: Not applicable
Withdrawal Assessment of Alcohol
Withdrawal Assessment Completed?: Not applicable
Course
Orders/Labs/Results
Orders:
Orders
06/24/25 12:39
Knee, Right 4 or More Views [CR Knee- Right 4 Or More View*] Urgent
Comment:
Reason For Exam: right knee pain fell down steps yesterday
Vital Signs
Initial and Last Documented VS:
Initial Vital Signs
Temp Pulse Resp BP Pulse Ox
36.7 C 80 16 127/79 98
06/24/25 12:35 06/24/25 12:35 06/24/25 12:35 06/24/25 12:35 06/24/25 12:35
Last Documented Vital Signs
Temp Pulse Resp BP Pulse Ox
36.7 C 80 16 127/79 98
06/24/25 12:35 06/24/25 12:35 06/24/25 12:35 06/24/25 12:35 06/24/25 12:50
MDM/Problems Addressed
Differential Diagnosis Includes:
Fracture (patellar, tibial, distal femur. fibular), dislocation, sprain, contusion, internal derangement (ligamentous injury, meniscus injury, etc)
MDM/Problems Addressed:
69-year-old female presents for evaluation of right knee pain after a fall. Vitals and exam as above. X-ray of the knee reviewed by me shows no acute fracture. She is weightbearing. Suspect likely minor sprain although MCL injury also a
consideration. Placed compression wrap. Advised regarding RICE. Stable to follow-up with orthopedist. I sent a message to orthopedist to inform that patient was seen in ER for injury. Advised patient to call office to schedule follow-up. All
questions answered.
*Radiology
Radiology exam reviewed: preliminary read by ED provider
*Pulse Oximetry
SaO2: 98
Oxygen Mode of Delivery: Room air
Patient hypoxic: no (98%)
*Critical Care Note
Total Time (30-74mins, 75-104mins- exclusive of procedures): Not Applicable
Data Reviewed
Source: patient and spouse
Patient Management
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
ED Attending Note
-
Portions of this chart may have been created with voice recognition software.� Occasional wrong word or��sound alike� substitutions may have occurred due to the inherent limitations of voice recognition software.
Discharge Plan
Departure
Patient Disposition: Home (Routine Discharge)
Date of Disposition: 06/24/25
Time of Disposition: 13:07
Patient with high blood pressure during this ER visit?: No
Discharge Problem:
Injury of knee, right
Instructions: Knee pain - ED (DC), RICE Therapy
Prescriptions:
No Action
cholecalciferol (vitamin D3) [Vitamin D3] 1,000 UNIT capsule
1,000 units PO HS
rosuvastatin 5 MG tablet
5 mg PO QPM
losartan-hydrochlorothiazide 50-12.5 mg Tablet
1 tab PO QPM
escitalopram oxalate [Lexapro] 10 mg Tablet
10 mg PO QPM
acetaminophen [acetaminophen] 325 mg tablet
650 mg PO Q4HPRN PRN (Reason: mild pain) Qty: 1 0RF
ibuprofen 200 mg tablet
400 - 600 mg PO Q6HPRN PRN (Reason: moderate pain) Qty: 1 0RF
tramadol 50 mg tablet
50 mg PO Q6HPRN PRN (Reason: severe pain/breakthrough pain) Qty: 7 0RF
ondansetron 4 mg tablet,disintegrating
4 mg PO Q8H PRN (Reason: nausea and vomiting) 10 Days Qty: 30 0RF
Referrals:
Omar Blanton MD [Active, Orthopedics] - Call in 1-3 days for appt
Didi Mccoy MD [Family Provider, Internal Medicine]
Activity Restrictions/Additional Instructions:
Thank you for visiting the Emergency Department at [facility].
1. Please schedule a follow up appointment as directed. Call first thing tomorrow morning to make an appointment.
2. If indicated, please take your medications as instructed and indicated on discharge paperwork.
3. If any of your symptoms do not improve, or persist, or become more severe within 6-12 hours, please return to the emergency department for further care.
4. Please return to the emergency department if you develop a headache, neck pain/stiffness, fever greater than 100.4F, chest pain, shortness of breath, persistent nausea, vomiting, slurred speech, difficulty walking, numbness/tingling, weakness,
signs of infection or any other symptoms that are worrisome to you.
Please call [phone] if you have any questions.
Interventions
Interventions:
*Risk Screen - Suicide Last Done: 06/24/25 12:35
*General Assessment Last Done: 06/24/25 13:05
*Neglect/Abuse Screening Last Done: 06/24/25 12:35
*ED- Fall Risk Assessment Last Done: 06/24/25 13:07
*ED COVID-19 Vaccine History Last Done: 06/24/25 13:05
*Nursing Disposition Last Done: 06/24/25 13:13
ED-Musculoskeletal Assessment Last Done: 06/24/25 13:08
ED- Neurological Assessment Last Done: 06/24/25 13:08
ED-Skin Assessment Last Done: 06/24/25 13:08
Discharge Date and Time
Discharge Date/Time: 06/24/25 13:14
Print Language: LATVIAN
--- NOTE | 2025-06-24 12:52 | EDRN ---
Dr. Gamez in room w/pt at this time.
[2025-06-24 13:04] VITALS: BMI 25.4
== END 2025-06-24 13:14 | disposition home or self-care (01) ==
LOC: EMR 12:31
PROVIDERS: EMERGENCY PHYSICIAN Emergency Medicine; FAMILY PHYSICIAN Internal Medicine
DX: S89.91XA Unspecified injury of right lower leg, initial encounter (principal); W10.9XXA Fall (on) (from) unspecified stairs and steps, initial encounter; Y93.01 Activity, walking, marching and hiking; I10 Essential (primary) hypertension; E78.00 Pure hypercholesterolemia, unspecified
CPT/HCPCS: 99283; 73564

== ENCOUNTER → 2025-07-20 11:17 | Outpatient (REF) | payer MEDICARE, OTHER, SELFPAY ==
[2025-07-20 12:20] LABS: Urine Character Clear (Clear)
[2025-07-20 12:27] LABS: Hematocrit 44.2 % (37.0-47.0); Hemoglobin 15.1 g/dL (12.0-16.0); Mean Corp Hgb Conc. 34.2 g/dL (33.0-37.0); Mean Corpuscular Volume 92.7 fL (81.0-99.0); Nucleated Red Blood Cells % 0 %; Platelet Count 235 10^3/uL (130-400); Red Cell Dist. Width 13.1 % (11.5-14.5)
[2025-07-20 13:47] LABS: Glycohemoglobin (HgbA1c) 5.8 % (4.0-5.6)
[2025-07-20 13:48] LABS: Vitamin D, 25-OH*** 64.3 ng/mL (30-80)
[2025-07-20 14:02] LABS: TSH 1.73 uIU/ml (0.47-4.68)
[2025-07-20 14:06] LABS: Ferritin 190.0 ng/ml (11.1-264.0)
[2025-07-20 14:44] LABS: ALT (SGPT) 21 U/L (0-35); AST (SGOT) 24 U/L (14-36); Albumin 4.6 g/dl (3.5-5.0); Alkaline Phosphatase 58 U/L (38-126); Blood Urea Nitrogen 24 mg/dl (7-17); Calcium 9.3 mg/dl (8.4-10.2); Carbon Dioxide 27 mmol/L (22-30); Chloride 100 mmol/L (98-107); Glucose 97 mg/dl (70-99); HDL Cholesterol 67 mg/dl; Iron 107 ug/dl (37-170); LDL Cholesterol, Calculated 100 mg/dl; Potassium 4.2 mmol/L (3.5-5.1); Sodium 134 mmol/L (135-145); Total Protein 7.1 g/dl (6.3-8.2); Very Low Density Lipoprotein 14 mg/dl (0-30); eGFR > 60.00
[2025-07-20 14:53] LABS: Total Iron Binding Capacity 313 ug/dl (265-497)
== END ==
LOC: REG 11:17
PROVIDERS: ATTENDING PHYSICIAN Internal Medicine
DX: I10 Essential (primary) hypertension (principal); E78.5 Hyperlipidemia, unspecified; R73.9 Hyperglycemia, unspecified; M85.88 Other specified disorders of bone density and structure, other site; D50.9 Iron deficiency anemia, unspecified; E55.9 Vitamin D deficiency, unspecified
CPT/HCPCS: 36415; 80053; 80061; 81003; 82306; 82728; 83036; 83540; 83550; 84443; 85025

== ENCOUNTER → 2025-07-25 13:57 | Outpatient (REF) | payer MEDICARE, OTHER, SELFPAY | LOC: MRI 3T 13:57 | PROVIDERS: ATTENDING PHYSICIAN Specialist; FAMILY PHYSICIAN Internal Medicine | DX: M25.561 Pain in right knee (principal) | CPT/HCPCS: 73721 ==

== ENCOUNTER → 2025-09-27 10:48 | Outpatient (REF) | payer MEDICARE, OTHER, SELFPAY ==
[2025-09-27 11:44] LABS: Hematocrit 42.3 % (37.0-47.0); Hemoglobin 14.3 g/dL (12.0-16.0); Mean Corp Hgb Conc. 33.8 g/dL (33.0-37.0); Mean Corpuscular Volume 93.0 fL (81.0-99.0); Nucleated Red Blood Cells % 0 %; Platelet Count 226 10^3/uL (130-400); Red Cell Dist. Width 12.3 % (11.5-14.5)
[2025-09-27 15:05] LABS: Vitamin D, 25-OH*** 43.9 ng/mL (30-80)
[2025-09-27 15:23] LABS: Ferritin 159.0 ng/ml (11.1-264.0)
[2025-09-27 15:44] LABS: Vitamin B12 310 pg/ml (239-931)
[2025-09-27 16:07] LABS: ALT (SGPT) 22 U/L (0-35); AST (SGOT) 25 U/L (14-36); Albumin 4.3 g/dl (3.5-5.0); Alkaline Phosphatase 57 U/L (38-126); Blood Urea Nitrogen 19 mg/dl (7-17); Calcium 9.5 mg/dl (8.4-10.2); Carbon Dioxide 32 mmol/L (22-30); Chloride 100 mmol/L (98-107); Glucose 97 mg/dl (70-99); HDL Cholesterol 73 mg/dl; Iron 115 ug/dl (37-170); LDL Cholesterol, Calculated 106 mg/dl; Potassium 4.5 mmol/L (3.5-5.1); Sodium 135 mmol/L (135-145); Total Protein 7.0 g/dl (6.3-8.2); Very Low Density Lipoprotein 13 mg/dl (0-30); eGFR > 60.00
[2025-09-27 16:16] LABS: Total Iron Binding Capacity 298 ug/dl (265-497)
== END ==
LOC: REG 10:48
PROVIDERS: ATTENDING PHYSICIAN Internal Medicine
DX: I10 Essential (primary) hypertension (principal); R53.82 Chronic fatigue, unspecified; E78.5 Hyperlipidemia, unspecified; E61.1 Iron deficiency; E55.9 Vitamin D deficiency, unspecified; R74.8 Abnormal levels of other serum enzymes; Z79.899 Other long term (current) drug therapy
CPT/HCPCS: 36415; 80053; 80061; 82306; 82607; 82728; 83540; 83550; 85025